=== PATIENT | female | born 1950 | race Native Hawaiian/Other Pacific Islander ===

== ENCOUNTER 2023-05-19 14:27 | Outpatient (CLI) | payer OTHER | END 2023-05-19 20:45 | disposition home or self-care (01) | LOC: NM 14:27 | PROVIDERS: ATTEND Internal Medicine | DX: R11.10 Vomiting, unspecified (principal); R63.4 Abnormal weight loss; R62.7 Adult failure to thrive | CPT/HCPCS: A9541 ==